=== PATIENT | female | born 1995 | race Caucasian/White ===

== ENCOUNTER 2018-05-19 10:06 | Emergency (ER) | payer BC, OTHER ==
[2018-05-19 10:46] VITALS: BP 104/74
--- NOTE | 2018-05-19 12:08 | UC ---
Abdominal Pain Female HPI - HPI Summary HPI Summary: Patient is complaining of "swollen ovaries". She states this began in the sides of her lower abdomen on Tuesday and same time she felt what she believes to be a swollen ovary-left. She states there is not anything that makes it feel specifically any better or any worse other than sore to touch. LMP . She denies any nausea vomiting diarrhea or dysuria. She has seen [facility] in the past and made a follow-up appointment with Dr. Rueda for the of this month. - History of Current Complaint Chief Complaint: UCGU Stated Complaint: LOWER ABD PAIN Time Seen by Provider: 05/19/18 11:45 Hx Last Menstrual Period: 04/29/18 Onset/Duration: Gradual Onset Timing: Constant Pain Intensity: 3 Associated Signs and Symptoms: Negative: Fever Allergies/Adverse Reactions: Allergies Allergy/AdvReac Type Severity Reaction Status Date / Time peanut Allergy Sore and Verified 05/19/18 10:41 Swollen Throat peanut oil Allergy Sore and Verified 05/19/18 10:41 Swollen Throat shrimp Allergy Sore and Verified 05/19/18 10:41 Swollen Throat PMH/Surg Hx/FS Hx/Imm Hx Previously Healthy: Yes - Surgical History Surgical History: None - Family History Known Family History: Positive: Other - Mother had breast cancer - Social History Occupation: Employed Full-time Lives: With Family Alcohol Use: Occasionally Substance Use Type: None Smoking Status (MU): Never Smoked Tobacco - Immunization History Vaccination Up to Date: Yes Review of Systems Constitutional: Negative Skin: Negative Eyes: Negative ENT: Negative Respiratory: Negative Cardiovascular: Negative Gastrointestinal: Abdominal Pain Genitourinary: Negative Motor: Negative Neurovascular: Negative Musculoskeletal: Negative Neurological: Negative Psychological: Negative Is Patient Immunocompromised?: No All Other Systems Reviewed And Are Negative: Yes Physical Exam Triage Information Reviewed: Yes Appearance: Well-Appearing Vital Signs: Initial Vital Signs Temp 98.8 F 05/19/18 10:38 Pulse 88 05/19/18 10:38 Resp 16 05/19/18 10:38 BP 104/74 05/19/18 10:38 Pulse Ox 100 05/19/18 10:38 Vital Signs Reviewed: Yes Eyes: Positive: Conjunctiva Clear ENT: Positive: Normal ENT inspection Neck: Positive: Supple, Nontender, No Lymphadenopathy Respiratory: Positive: Lungs clear, Normal breath sounds Cardiovascular: Positive: RRR, No Murmur Abdomen Description: Positive: Other: - Abdomen is flat, positive bowel sounds, soft, nontender, no mass or hepatosplenomegaly or CVA tenderness. There is an approximate $0.50 sized area over the mom is with mild erythema, slight swelling and excoriation but no fluctuance. It correlates with the site of shaving. Bilateral inguinal adenopathy is appreciated, left greater than right. Left is consistent with the area patient felt to be a swollen ovary. Diagnostics - Laboratory Diagnostic Studies Completed/Ordered: U/A=TRACE PROTEIN. NEG HCG Abd Pain Female Course/Dx - Course Course Of Treatment: History and physical exam discussed with Dr. Parra. She evaluated patient by request. And agrees that this is inguinal adenopathy. Patient denies history of MRSA; however, she admits to having similar skin infections in the past. Thus I will cover her with Bactrim and refer her to [facility] where she has been seen in past. - Differential Dx/Diagnosis Provider Diagnoses: Mons skin infection. Inguinal adenopathy. Discharge - Sign-Out/Discharge Documenting (check all that apply): Discharge/Admit/Transfer - Discharge Plan Condition: Stable Disposition: HOME Prescriptions: Sulfamethox/Trimethoprim DS* [Bactrim DS 800/160 TAB*] 1 tab PO BID #20 tab Patient Education Materials: Cellulitis (ED), Lymphadenopathy (ED) Referrals: Eli De Luna PA [Physician [employer]] - 3 Days Additional Instructions: FOLLOW UP DR RUEDA 06/07/18 SCHEDULED. STOP SHAVING INFECTED AREA. DISPOSE OF SHAVER. - Billing Disposition and Condition Condition: STABLE Disposition: Home
== END 2018-05-19 12:20 | disposition home or self-care (01) ==
LOC: UCCORT 10:06
DX: L08.9 Local infection of the skin and subcutaneous tissue, unspecified (principal); R59.0 Localized enlarged lymph nodes
CPT/HCPCS: 81003; 84702; 99212; G0463